=== PATIENT | female | born 1985 | race Caucasian/White ===

== ENCOUNTER 2021-10-30 00:44 | Emergency (ER) | payer OTHER ==
[2021-10-30 01:55] LABS: BUN/CREATININE RATIO 9 (0-10)
[2021-10-30 02:17] LABS: HEMOGLOBIN 9.5 gm/dl (12.3-15.3); WHITE BLOOD COUNT 9.7 K/UL (4.5-11.0)
[2021-10-30] MEDS ORDERED: OMNICEF 300 MG300 MG PO (03:50)
[2021-10-30] MEDS ORDERED: KLOR-CON M2020 MEQ PO (04:48)
== END 2021-10-30 04:12 | disposition home or self-care (01) ==
LOC: ER1 00:44
PROVIDERS: Student in an Organized Health Care Education/Training Program
DX: N39.0 Urinary tract infection, site not specified (principal); E87.6 Hypokalemia; R00.0 Tachycardia, unspecified; F17.210 Nicotine dependence, cigarettes, uncomplicated; Z90.49 Acquired absence of other specified parts of digestive tract; Z20.822 Contact with and (suspected) exposure to COVID-19
CPT/HCPCS: 0240U; 71045; 80053; 81001; 82550; 82553; 84484; 84703; 85025; 85379; 96374; 99284; J0696; Q9967